=== PATIENT | male | born 1960 | race Caucasian/White ===

== ENCOUNTER → 2016-09-12 | Outpatient (CLI) | payer BC, MEDICARE ==
[~2016-09-12] MED LIST: AGGRENOX1 CAPSULE PO; AMLODIPINE BESYL5 MG PO; ASPIR 8181 M1 PO; ATORVASTATIN CA80 MG PO; BYSTOLIC10 MG PO; CALCIUM ACETAT667 M2 PO; CARDIZEM CD,CA240 MG PO; CLONIDINE HCL0.2 MG PO; DIGOXIN125 MCG PO; ELIQUIS5 MG PO; FUROSEMIDE40 MG PO; FUROSEMIDE80 MG PO; GENERLAC10 GM/15 M PO; HUMALOG100 UNIT/2 SC; HYDROCODON-ACE1 EAC7 PO; HYDROCODON-ACE1 EAC9 PO; KEPPRA500 MG PO; LANTUS 3 M100 UNITS1 SC; METOPROLOL TART50 MG PO; NIASPAN,SLO-NI500 MG PO; PANTOPRAZOLE SO40 MG PO; RENVELA800 MG PO; SLOW-MAG,MAG DE64 MG PO; SODIUM BICARBO325 MG PO; STOOL PO; STOOL SOFTENER100 MG PO; Slow-Mag PO; Sodium Bicarbonate PO; ULORIC40 MG PO; VITAMIN B COMP1 EACH PO; VITAMIN D250000 UNIT PO; WARFARIN SODIU2.5 MG PO; WARFARIN SODIUM5 MG PO
== END | disposition home or self-care (01) ==
LOC: CDC 14:45
DX: R94.31 Abnormal electrocardiogram [ECG] [EKG] (principal)
CPT/HCPCS: 93000

== ENCOUNTER 2016-09-15 08:00 | Day surgery (SDC) | payer BC, OTHER ==
[~2016-09-15] VITALS: Ht 180.3 cm; Wt 83.9 kg
[2016-09-15 08:34] LABS: POINT-OF-CARE METER ID UU13113696
[2016-09-15 09:46] LABS: METH RESISTANT S AUREUS PCR NEGATIVE (NEGATIVE); PROBE CHECK PASS; SPECIMEN PROCESSING CONTROL PASS
[2016-09-18] MEDS ORDERED: IMDUR30 MG PO (15:01)
[2016-09-18] MEDS ORDERED: CARTIA XT240 MG PO (15:04)
[2016-09-18] MEDS ORDERED: ZESTRIL5 MG PO (15:04)
== END 2016-09-15 11:05 | disposition home or self-care (01) ==
LOC: CATH 08:00
PROVIDERS: Surgery
DX: T82.858A Stenosis of other vascular prosthetic devices, implants and grafts, initial encounter (principal); Y83.2 Surgical operation with anastomosis, bypass or graft as the cause of abnormal reaction of the patient, or of later complication, without mention of misadventure at the time of the procedure; Z99.2 Dependence on renal dialysis; I12.0 Hypertensive chronic kidney disease with stage 5 chronic kidney disease or end stage renal disease; E11.22 Type 2 diabetes mellitus with diabetic chronic kidney disease; N18.6 End stage renal disease; I25.10 Atherosclerotic heart disease of native coronary artery without angina pectoris; I25.2 Old myocardial infarction; Z95.1 Presence of aortocoronary bypass graft
CPT/HCPCS: 82948; 87641; C1725; C1769; C1894; J1644; J2250; J3010

== ENCOUNTER 2016-09-20 11:36 | Day surgery (SDC) | payer BC, OTHER ==
[~2016-09-20] VITALS: Ht 180.3 cm; Wt 84.0 kg
[~2016-09-20 11:36] MED LIST changes: +CARTIA XT240 MG PO; +IMDUR30 MG PO; +ZESTRIL5 MG PO
[2016-09-20 12:15] VITALS: BP 125/56
[2016-09-20 12:26] LABS: POINT-OF-CARE METER ID UU14174212
[2016-09-20 12:52] LABS: HEMATOCRIT 42.5 % (38.0-50.0); MCHC 33.6 G/DL (30.0-36.0); MCV 95.1 FL (86-99); MEAN PLAT.VOLUME 9.1 uM^3 (9.0-12.4); PLATELET COUNT 222 K/uL (156-360); RBC DIS.WIDTH-CV 14.7 % (11.8-14.6); RBC DIS.WIDTH-SD 50.5 % (39-53); RED BLOOD COUNT 4.47 M/uL (4.00-5.50); WHITE BLOOD COUNT 6.9 K/uL (4.1-10.2)
[2016-09-20 13:24] LABS: METH RESISTANT S AUREUS PCR NEGATIVE (NEGATIVE); PROBE CHECK PASS; SPECIMEN PROCESSING CONTROL PASS
[2016-09-20 13:24] LABS: CHLORIDE 95 MEQ/L (99-109); POTASSIUM 4.5 MEQ/L (3.7-5.4); SODIUM 138 MEQ/L (136-147)
[2016-09-20 13:43] LABS: ANION GAP 13 MEQ/L (2-14); GFR ESTIMATE (CALCULATED) 17 mL/min/; GLUCOSE 180 mg/dL (70-99); SAMPLE HEMOLYSIS CHECK 0; SAMPLE ICTERIC CHECK 0; SAMPLE LIPEMIA CHECK 1; UREA NITROGEN (BUN) 18 mg/dL (9-23)
[2016-09-20 15:13] LABS: POINT-OF-CARE METER ID UU13113675
[2016-09-20 16:53] VITALS: BP 167/76
[2016-09-20 17:46] VITALS: BP 161/77
== END 2016-09-20 17:55 | disposition home or self-care (01) ==
LOC: SDC 11:36
PROVIDERS: Surgery
PROC: 0WHG03Z Insertion of Infusion Device into Peritoneal Cavity, Open Approach (ICD-10-PCS; principal; 2016-09-20)
DX: I12.0 Hypertensive chronic kidney disease with stage 5 chronic kidney disease or end stage renal disease (principal); E11.22 Type 2 diabetes mellitus with diabetic chronic kidney disease; N18.6 End stage renal disease; I25.10 Atherosclerotic heart disease of native coronary artery without angina pectoris; I25.2 Old myocardial infarction; M19.90 Unspecified osteoarthritis, unspecified site
CPT/HCPCS: 80048; 82948; 85027; 87641; C1750; J0330; J0690; J1170; J1644; J2405; J3010

== ENCOUNTER 2016-09-23 14:22 | Emergency (ER) | payer BC, OTHER ==
[~2016-09-23] VITALS: Ht 180.3 cm; Wt 87.9 kg
[2016-09-23] MEDS ORDERED: ELIQUIS2.5 MG PO (16:22)
[2016-09-23] MEDS ORDERED: HYDROCODON-ACE1 EAC7 PO (16:22)
[2016-09-23 17:20] VITALS: BP 125/69
== END 2016-09-23 17:21 | disposition home or self-care (01) ==
LOC: EME 14:22
DX: T85.838A Hemorrhage due to other internal prosthetic devices, implants and grafts, initial encounter (principal); N18.6 End stage renal disease; Z99.2 Dependence on renal dialysis
CPT/HCPCS: 99281; 99283

== ENCOUNTER 2016-11-06 07:29 | Day surgery (SDC) | payer OTHER, BC ==
[~2016-11-06] VITALS: Ht 180.3 cm; Wt 83.9 kg
[~2016-11-06 07:29] MED LIST changes: +ELIQUIS2.5 MG PO
[2016-11-06 08:06] VITALS: BP 172/81
[2016-11-06 08:08] LABS: HEMATOCRIT 37.5 % (38.0-50.0); MCH 31.4 PG (29.0-34.0); MCHC 32.8 G/DL (30.0-36.0); MCV 95.7 FL (86-99); MEAN PLAT.VOLUME 9.1 uM^3 (9.0-12.4); PLATELET COUNT 234 K/uL (156-360); RBC DIS.WIDTH-CV 13.8 % (11.8-14.6); RBC DIS.WIDTH-SD 48.4 % (39-53); RED BLOOD COUNT 3.92 M/uL (4.00-5.50); WHITE BLOOD COUNT 11.7 K/uL (4.1-10.2)
[2016-11-06 08:17] LABS: ANION GAP 11 MEQ/L (2-14); CHLORIDE 98 MEQ/L (99-109); POTASSIUM 4.6 MEQ/L (3.7-5.4); SAMPLE HEMOLYSIS CHECK 0; SAMPLE ICTERIC CHECK 0; SAMPLE LIPEMIA CHECK 0; SODIUM 135 MEQ/L (136-147)
[2016-11-06 08:22] LABS: GFR ESTIMATE (CALCULATED) 9 mL/min/; GLUCOSE 217 mg/dL (70-99); UREA NITROGEN (BUN) 45 mg/dL (9-23)
[2016-11-06 09:16] LABS: METH RESISTANT S AUREUS PCR NEGATIVE (NEGATIVE); PROBE CHECK PASS; SPECIMEN PROCESSING CONTROL PASS
[2016-11-06 11:52] LABS: POINT-OF-CARE METER ID UU13113675
[2016-11-06 13:50] VITALS: BP 169/69
[2016-11-06 14:42] VITALS: BP 165/76
== END 2016-11-06 14:53 | disposition home or self-care (01) ==
LOC: SDC 07:29
PROVIDERS: Surgery
PROC: 0WUF0JZ Supplement Abdominal Wall with Synthetic Substitute, Open Approach (ICD-10-PCS; principal; 2016-11-06)
DX: K43.2 Incisional hernia without obstruction or gangrene (principal); I12.0 Hypertensive chronic kidney disease with stage 5 chronic kidney disease or end stage renal disease; E11.22 Type 2 diabetes mellitus with diabetic chronic kidney disease; N18.6 End stage renal disease; Z99.2 Dependence on renal dialysis; M19.90 Unspecified osteoarthritis, unspecified site; I25.10 Atherosclerotic heart disease of native coronary artery without angina pectoris; I25.2 Old myocardial infarction; Z95.1 Presence of aortocoronary bypass graft; F17.200 Nicotine dependence, unspecified, uncomplicated; Z79.82 Long term (current) use of aspirin
CPT/HCPCS: 80048; 82948; 85027; 87641; C1781; J0131; J0330; J0690; J1170; J2405; J3010